=== PATIENT | male | born 1985 | race Caucasian/White ===

== ENCOUNTER → 2018-05-15 | Outpatient (CLI) | payer OTHER | LOC: M RAD 09:46 | DX: M54.5 Low back pain (principal); R93.7 Abnormal findings on diagnostic imaging of other parts of musculoskeletal system | CPT/HCPCS: 72131 ==

== ENCOUNTER → 2019-04-14 | Outpatient (CLI) | payer OTHER ==
--- NOTE | 2019-04-16 10:16 | SLEEPCENT ---
DATE OF PROCEDURE: 04/14/2019 ORDERED BY: Aeljo Muñoz. Nocturnal polysomnography was performed for evaluation of sleep physiology in this patient with history of excessive somnolence and nonrestorative sleep who has comorbidities of acid reflux disease. 6 hours and 59 minutes of data were reviewed. There were 348.5 minutes of sleep identified. Sleep latency was mildly prolonged at 37.5 minutes. REM sleep was further delayed at 262 minutes. Sleep architecture showed poor progression early in the study. There were two REM cycles later in the test. Overall sleep efficiency was 84.1%. The patient's electrocardiogram showed a sinus rhythm with an average heart rate of 56 beats per minute. EEG showed normal waveforms for awake and sleep. There were 42 respiratory events identified of 10 seconds in duration or greater for an apnea-hypopnea index of 7.2. The events were primarily obstructive not exclusive to sleep stage nor body posture. Snoring was noted over much of the test. Respiratory related arousals occurred 4.5 times per hour when arousals from snoring were included. Oxygen saturations were maintained and there was little activity in the limb leads. Remaining measures of sleep physiology were normal. IMPRESSION: Obstructive sleep apnea syndrome (G47.33). Apnea-hypopnea index 7.2. RECOMMENDATIONS: The patient should be encouraged to return to the sleep disorder center for pressure therapy. In the interim, alcohol and sedative avoidance should be practiced and caution exercised with the operation of motor vehicles.
== END ==
LOC: M SLEEP 19:36
PROVIDERS: ATTEND Physician Assistant
DX: G47.33 Obstructive sleep apnea (adult) (pediatric) (principal)

== ENCOUNTER → 2019-05-05 | Outpatient (CLI) | payer OTHER ==
--- NOTE | 2019-05-07 00:32 | SLEEPCENT ---
DATE OF PROCEDURE: 05/05/2019 ORDERED BY: Silas Muñoz PA-C Nocturnal polysomnography was performed for the titration of pressure therapy in this patient with obstructive sleep apnea syndrome, apnea-hypopnea index of 7.2. For testing a ResMed Quattro full face mask of large size was used, 4 cm of water pressure were applied to the circuit and the lights were extinguished. 7 hours and 43 minutes of data were reviewed. There were 422.5 minutes of sleep identified. Sleep latency was short at 3.5 minutes. Rapid eye movement (REM) latency was delayed at 268 minutes. Sleep architecture improved late in the study. There were three REM cycles. Overall sleep efficiency 92.3%. The patient's electrocardiogram showed a sinus rhythm with an average heart rate of 55 beats per minute. EEG showed normal waveforms for awake and sleep. Respiratory events were best palliated with continuous positive airway pressure (CPAP) at a pressure of +8 with some minor limb activity in the EMG leads. Limb movement arousal index 5.1. IMPRESSION: Obstructive sleep apnea syndrome (G47.33). RECOMMENDATIONS: Nightly use of pressure therapy 8 cm of water.
== END ==
LOC: M SLEEP 19:39
PROVIDERS: ATTEND Physician Assistant
DX: G47.33 Obstructive sleep apnea (adult) (pediatric) (principal)

== ENCOUNTER → 2020-01-21 | Outpatient (CLI) | payer OTHER ==
--- NOTE | 2020-01-21 11:20 | REP ---
SCROTAL ULTRASOUND: Real-time sonographic evaluation of scrotum and contents performed. Testicles are normal in size and echotexture, right testicle measuring 4.6 x 2.3 x 2.9 cm and left testicle 4.7 x 2.1 x 3.0 cm. There is no testicular mass or torsion, blood flow is seen in each testicle with duplex Doppler evaluation. There is a calcification in the right hemiscrotum inferior to the testicle, which is mobile, consistent with a scrotal janet, 4 mm in diameter. There may be one or two tiny calcifications in the left testicle. There are tiny bilateral hydroceles. IMPRESSION: No testicular mass or torsion. There is a 4 mm scrotal janet in the right hemiscrotum. Electronically Signed by Andrea Rangel MD 01/21/2020 03:17 P
== END ==
LOC: M RAD 08:35
PROVIDERS: ATTEND Nurse Practitioner Family
DX: N50.9 Disorder of male genital organs, unspecified (principal); N43.3 Hydrocele, unspecified

== ENCOUNTER → 2020-08-23 | Outpatient (CLI) | payer SELFPAY ==
[~2020-08-23] MED LIST: FAMO20TA PO; MIRT1TAB16 PO; MULT1TAB8 PO; RA B1TAB7 PO; SUMA25TA3 PO; TRAZ-186 PO
== END ==
LOC: M LABSMTC 10:28
PROVIDERS: ATTEND Pediatrics
DX: Z20.822 Contact with and (suspected) exposure to COVID-19 (principal)

== ENCOUNTER 2020-11-15 18:51 | Emergency (ER) | payer OTHER ==
[~2020-11-15] VITALS: Ht 190.5 cm; Wt 104.2 kg
[2020-11-15] MEDS ORDERED: TIZA4TAB4 PO (19:53)
[2020-11-15 22:33] LABS: BASO # 0.1 10^3/uL (0.0-0.2); BASO % 0.6 % (0.0-1.0); EOS # 0.3 10^3/uL (0.0-0.5); EOS % 3.2 % (0.0-3.0); HEMATOCRIT 43.7 % (42.0-52.0); HEMOGLOBIN 15.4 g/dl (13.5-17.5); LYMPH % 29.5 % (24.0-44.0); MEAN CORPUSCULAR HGB CONC 35.2 g/dl (32.0-36.5); MEAN CORPUSCULAR VOLUME 88.1 fl (80.0-96.0); MONO # 0.9 10^3/uL (0.0-0.8); MONO % 8.3 % (2.0-8.0); NEUTROPHILS # 5.9 10^3/uL (1.5-8.5); PLATELET COUNT, AUTOMATED 300 10^3/uL (150-450); RED BLOOD COUNT 4.96 10^6/uL (4.30-6.10); WHITE BLOOD COUNT 10.2 10^3/uL (4.0-10.0)
[2020-11-15 23:00] LABS: ALBUMIN 4.2 GM/DL (3.2-5.2); ALT/SGPT 32 U/L (12-78); BILIRUBIN,DIRECT 0.2 MG/DL (0.0-0.2); BILIRUBIN,TOTAL 0.6 MG/DL (0.2-1.0); BLOOD UREA NITROGEN 11 MG/DL (7-18); CALCIUM LEVEL 9.7 MG/DL (8.5-10.1); CARBON DIOXIDE LEVEL 29 MEQ/L (21-32); CHLORIDE LEVEL 103 MEQ/L (98-107); CREATININE FOR GFR 0.94 MG/DL (0.70-1.30); GLOMERULAR FILTRATION RATE > 60.0 (>60); GLUCOSE, FASTING 81 MG/DL (70-100); LIPASE 120 U/L (73-393); POTASSIUM SERUM 3.7 MEQ/L (3.5-5.1); SODIUM LEVEL 138 MEQ/L (136-145); TOTAL PROTEIN 7.2 GM/DL (6.4-8.2)
[2020-11-15] MEDS ORDERED: KETOROLAC 30 MG/ML 1ML VIAL IV ONE (23:20)
--- NOTE | 2020-11-16 00:06 | REPVR ---
PROCEDURE INFORMATION: Exam: CT Abdomen And Pelvis With Contrast Exam date and time: 11/15/2020 11:19 PM Age: 35 years old Clinical indication: Abdominal pain; Localized; Right; Additional info: Right abd pain TECHNIQUE: Imaging protocol: Computed tomography of the abdomen and pelvis with contrast. Axial, coronal and sagittal reformatted images were created and reviewed. Radiation optimization: All CT scans at this facility use at least one of these dose optimization techniques: automated exposure control; mA and/or kV adjustment per patient size (includes targeted exams where dose is matched to clinical indication); or iterative reconstruction. Contrast material: ISO; Contrast volume: 100 ml; Contrast route: INTRAVENOUS (IV); COMPARISON: Scrotal, US 01/21/2020 8:52 AM FINDINGS: Liver: Mild hepatic steatosis. 8 mm low-density lesion in the hepatic dome on the right, too small to characterize. Gallbladder and bile ducts: No radiodense gallstones. No biliary ductal dilatation. Pancreas: Unremarkable. Spleen: Unremarkable. Adrenal glands: Normal. No mass. Kidneys and ureters: No mass. No radiodense calculi. No hydronephrosis. Stomach and bowel: No bowel wall thickening. No obstruction. No pneumatosis. Appendix: Normal. Intraperitoneal space: No free fluid. No organized fluid collection. No free air. Vasculature: Duplicated IVC. No aortic aneurysm. Lymph nodes: Small mesenteric lymph nodes, nonspecific in appearance. No pathologically enlarged lymph nodes. Urinary bladder: Mild circumferential urinary bladder wall thickening, likely secondary to underdistention. Reproductive: Unremarkable. Bones/joints: No acute osseous abnormality. Soft tissues: Unremarkable. IMPRESSION: 1. Mild circumferential urinary bladder wall thickening, likely secondary to underdistention. Correlate with urinalysis to exclude cystitis. 2. Additional findings, as above. Electronically signed by: Qamar Cordova On 11/16/2020 00:06:04 AM
[2020-11-16 02:01] VITALS: BP 126/78
--- NOTE | 2020-11-18 10:09 | ED PDOC ---
Post-Departure Follow-Up radiology report faxed to ricardo Marte Sarah MD Nov 18, 2020 10:09
== END 2020-11-16 02:04 | disposition home or self-care (01) ==
LOC: M ED 18:51
DX: R10.9 Unspecified abdominal pain (principal); R11.0 Nausea; K21.9 Gastro-esophageal reflux disease without esophagitis; Z87.442 Personal history of urinary calculi

== ENCOUNTER → 2020-12-16 | Outpatient (CLI) | payer OTHER ==
[~2020-12-16] MED LIST changes: +TIZA4TAB4 PO
--- NOTE | 2020-12-16 15:24 | REP ---
INDICATION: SINUSITIS DEVIATED NASAL SEPTUM. COMPARISON: NONE. TECHNIQUE: Helical scanning is acquired and 2 mm axial images re-formatted. Coronal MPR images are generated and reviewed. FINDINGS: The digital reverberatory furnace operator views are unremarkable. There are mucous retention cysts in the inferior aspect of each maxillary sinus. The largest of these is on the left measuring 18 mm in greatest diameter. There is partial septal opacity in the ethmoid air cells bilaterally. There is a tiny mucous retention cyst in the right side of the sphenoid sinus. The sphenoid sinuses otherwise clear. Frontal sinuses are clear. Mastoid aeration is normal and symmetric. There is rightward nasal septal deviation with a large beak. Nasal turbinates soft tissues are unremarkable. There is moderate mucosal thickening occluding the right ostiomeatal complex. Richi cells are noted bilaterally. No intraorbital abnormality is seen. The deep facial soft tissues are unremarkable. Visualized intracranial structures are unremarkable. IMPRESSION: Rightward nasal septal deviation with a large beak. Richi cells present bilaterally. The right OMC is obscured by mucosal thickening. Mucosal changes are noted in the maxillary and ethmoid air cells. <Electronically signed by Bryson Uribe > 12/16/20 [id number]
== END ==
LOC: M RAD 14:39
PROVIDERS: ATTEND Specialist
DX: J34.2 Deviated nasal septum (principal)

== ENCOUNTER → 2022-01-09 | Outpatient (CLI) | payer OTHER ==
[~2022-01-09] MED LIST changes: +TIZA10TA PO; -TIZA4TAB4 PO
== END ==
LOC: M SLEEP HO 15:12
PROVIDERS: ATTEND Nurse Practitioner Family
DX: G47.33 Obstructive sleep apnea (adult) (pediatric) (principal); K21.9 Gastro-esophageal reflux disease without esophagitis

== ENCOUNTER → 2022-02-19 | Outpatient (CLI) | payer OTHER ==
[~2022-02-19] MED LIST changes: +GASTROGRAFIN SOLUTION 30ML (Q9963) As Ordered ONE
== END ==
LOC: M RAD 11:55
PROVIDERS: ATTEND Family Medicine
DX: R10.9 Unspecified abdominal pain (principal)
CPT/HCPCS: 74176; Q9963

== ENCOUNTER 2023-01-22 11:14 | Emergency (ER) | payer OTHER ==
[~2023-01-22] VITALS: Ht 190.5 cm; Wt 103.7 kg
[~2023-01-22 11:14] MED LIST changes: -GASTROGRAFIN SOLUTION 30ML (Q9963) As Ordered ONE
[2023-01-22 11:15] VITALS: TEMP 97.5
[2023-01-22] MEDS ORDERED: OMEP-173 PO (11:33)
[2023-01-22 12:53] LABS: BASO # 0.1 10^3/uL (0.0-0.2); BASO % 0.6 % (0.0-1.0); EOS # 0.2 10^3/uL (0.0-0.5); EOS % 2.2 % (0.0-3.0); HEMATOCRIT 42.9 % (42.0-52.0); HEMOGLOBIN 15.2 g/dl (13.5-17.5); LYMPH # 2.1 10^3/uL (1.5-5.0); LYMPH % 25.1 % (24.0-44.0); MEAN CORPUSCULAR HEMOGLOBIN 31.7 pg (27.0-33.0); MEAN CORPUSCULAR HGB CONC 35.4 g/dl (32.0-36.5); MEAN CORPUSCULAR VOLUME 89.4 fl (80.0-96.0); MONO # 0.7 10^3/uL (0.0-0.8); MONO % 7.9 % (2.0-8.0); NEUTROPHILS # 5.3 10^3/uL (1.5-8.5); NEUTROPHILS % 63.8 % (36.0-66.0); PLATELET COUNT, AUTOMATED 289 10^3/uL (150-450); WHITE BLOOD COUNT 8.2 10^3/uL (4.0-10.0)
[2023-01-22] MEDS ORDERED: ISOVUE-370 76% 100ML VIAL As Ordered ONE (13:07)
[2023-01-22 13:17] LABS: ALBUMIN 4.3 G/DL (3.2-5.2); ALKALINE PHOSPHATASE 41 U/L (46-116); ALT/SGPT 15 U/L (7.0-40); AST/SGOT < 8 U/L (<34); BILIRUBIN,DIRECT 0.1 MG/DL (<0.4); BILIRUBIN,TOTAL 0.4 MG/DL (0.3-1.2); LIPASE 42 U/L (12-53); TOTAL PROTEIN 6.8 G/DL (5.7-8.2)
[2023-01-22 14:48] VITALS: BP 125/72; O2SAT 99
== END 2023-01-22 15:02 | disposition home or self-care (01) ==
LOC: M ED 11:14
DX: R10.9 Unspecified abdominal pain (principal); Z79.899 Other long term (current) drug therapy
CPT/HCPCS: 36415; 74177; 80047; 80076; 81001; 83690; 85025; 87086; 99284; Q9967

== ENCOUNTER 2024-07-09 10:35 | Emergency (ER) | payer OTHER ==
[~2024-07-09] VITALS: Ht 188 cm; Wt 113.9 kg
[~2024-07-09 10:35] MED LIST changes: +OMEP-173 PO
[2024-07-09] MEDS ORDERED: THERTAB52 PO (10:43)
[2024-07-09 11:44] LABS: BASO # 0.1 10^3/uL (0.0-0.2); BASO % 0.6 % (0.0-1.0); EOS # 0.5 10^3/uL (0.0-0.5); EOS % 4.7 % (0.0-3.0); HEMATOCRIT 45.8 % (42.0-52.0); HEMOGLOBIN 16.4 g/dl (13.5-17.5); LYMPH % 19.7 % (24.0-44.0); MEAN CORPUSCULAR HEMOGLOBIN 33.2 pg (27.0-33.0); MEAN CORPUSCULAR HGB CONC 35.8 g/dl (32.0-36.5); MEAN CORPUSCULAR VOLUME 92.7 fl (80.0-96.0); MONO # 0.9 10^3/uL (0.0-0.8); MONO % 8.5 % (2.0-8.0); NEUTROPHILS # 6.8 10^3/uL (1.5-8.5); NEUTROPHILS % 66.1 % (36.0-66.0); PLATELET COUNT, AUTOMATED 325 10^3/uL (150-450); RED BLOOD COUNT 4.94 10^6/uL (4.30-6.10); WHITE BLOOD COUNT 10.3 10^3/uL (4.0-10.0)
[2024-07-09] MEDS ORDERED: ISOVUE-370 76% 100ML VIAL As Ordered ONE (11:57)
[2024-07-09 12:02] LABS: PARTIAL THROMBOPLASTIN TIME 27.6 SECONDS (24.8-34.2); PROTHROMBIN TIME 13.5 SECONDS (12.5-14.5)
[2024-07-09 12:11] LABS: ALBUMIN 4.3 G/DL (3.2-5.2); BILIRUBIN,DIRECT 0.2 MG/DL (<0.4); BILIRUBIN,TOTAL 0.7 MG/DL (0.3-1.2); TOTAL PROTEIN 7.9 G/DL (5.7-8.2)
[2024-07-09 13:21] VITALS: BP 134/85; TEMP 96.8; O2SAT 98
== END 2024-07-09 13:23 | disposition home or self-care (01) ==
LOC: M ED 10:35
DX: K64.8 Other hemorrhoids (principal); D72.829 Elevated white blood cell count, unspecified; Z87.820 Personal history of traumatic brain injury; Z79.899 Other long term (current) drug therapy
CPT/HCPCS: 74177; 80047; 80076; 81001; 83690; 85025; 85610; 85730; 86850; 86900; 86901; 99284; Q9967

== ENCOUNTER 2025-02-23 10:13 | Emergency (ER) | payer OTHER ==
[~2025-02-23] VITALS: Ht 190.5 cm; Wt 109.9 kg
[~2025-02-23 10:13] MED LIST changes: +THERTAB52 PO
[2025-02-23 10:20] VITALS: BP 137/94; TEMP 96.4; O2SAT 100
[2025-02-23 12:03] LABS: BASO # 0.1 10^3/uL (0.0-0.2); BASO % 0.6 % (0.0-1.0); EOS # 0.3 10^3/uL (0.0-0.5); EOS % 3.0 % (0.0-3.0); LYMPH # 1.8 10^3/uL (1.5-5.0); LYMPH % 19.3 % (24.0-44.0); MONO # 0.8 10^3/uL (0.0-0.8); MONO % 8.9 % (2.0-8.0); NEUTROPHILS # 6.4 10^3/uL (1.5-8.5); NEUTROPHILS % 67.8 % (36.0-66.0); PLATELET COUNT, AUTOMATED 278 10^3/uL (150-450)
[2025-02-23 12:03] LABS: KETONE, URINE AUTO RFX NEGATIVE (NEGATIVE); LEUKOCYTE ESTERASE UR AUTO RFX NEGATIVE (NEGATIVE); MUCUS, URINE RFX SMALL (NEGATIVE); NITRITE, URINE AUTO RFX NEGATIVE (NEGATIVE); RBC, URINE AUTO RFX 0 /HPF (0-3); SQUAM EPITHELIAL CELL UR AURFX 0 /HPF (0-6); WBC, URINE AUTO RFX 1 /HPF (0-3)
[2025-02-23 12:20] LABS: ALT/SGPT 40 U/L (7.0-40); AST/SGOT 27 U/L (<34); CALCIUM LEVEL 9.7 MG/DL (8.5-10.1); CARBON DIOXIDE LEVEL 27 MMOL/L (20-31); CHLORIDE LEVEL 104 MMOL/L (98-107); CREATININE FOR GFR 0.98 MG/DL (0.70-1.30); GLOMERULAR FILTRATION RATE > 90.0 (>60); POTASSIUM SERUM 4.3 MMOL/L (3.5-5.1); SODIUM LEVEL 141 MMOL/L (136-145)
== END 2025-02-23 13:37 | disposition left against medical advice (07) ==
LOC: M ED 10:13
DX: R10.11 Right upper quadrant pain (principal); Z53.9 Procedure and treatment not carried out, unspecified reason; K76.0 Fatty (change of) liver, not elsewhere classified; Z79.899 Other long term (current) drug therapy